=== PATIENT | female | born 1970 | race Caucasian/White ===

== ENCOUNTER 2023-06-03 06:44 | Day surgery (SDC) | payer BC ==
[~2023-06-03] VITALS: Ht 165.1 cm; Wt 46.3 kg
[2023-06-03 07:14] LABS: HCG,QUAL RESULT NEGATIVE (NEGATIVE)
[2023-06-03] MEDS ORDERED: SIMETHICONE 40 MG/0.6 ML ML ONE (07:48)
[2023-06-03] MEDS ORDERED: MIDAZOLAM HCL 5 MG/5 ML VIAL ONE (07:48)
[2023-06-03] MEDS ORDERED: MEPERIDINE 100 MG INJ. 100 MG/ML VIAL ONE (07:48)
[2023-06-03 07:59] VITALS: O2SAT 100
[2023-06-03] MEDS ORDERED: DIPHENHYDRAMINE INJ 50 MG/ML VIAL ONE (08:30)
[2023-06-03 11:24] VITALS: BP_SYST 109; PULSE 81; RESP 18
== END 2023-06-03 10:07 | disposition home or self-care (01) ==
LOC: SDS 06:44 → SMU 06:45 → SDS 10:07
PROVIDERS: ATTEND Student in an Organized Health Care Education/Training Program
DX: R19.7 Diarrhea, unspecified (principal); K25.9 Gastric ulcer, unspecified as acute or chronic, without hemorrhage or perforation; R63.4 Abnormal weight loss; K29.70 Gastritis, unspecified, without bleeding; K64.8 Other hemorrhoids
CPT/HCPCS: 45331; 43239; 99152; 84703; 88305; 88312; 88313; 99153; G0378; J1200; J2250; J2175